=== PATIENT | female | born 1995 | race African-American/Black ===

== ENCOUNTER 2020-02-24 12:26 | Emergency (ER) | payer OTHER ==
[~2020-02-24] VITALS: Ht 172.7 cm; Wt 134.7 kg
--- NOTE | 2020-02-24 13:18 | Diagnostic Imaging Report ---
EXAMINATION: HAND 3 VIEW LT - HOPD INDICATION: Pain COMPARISON: None FINDINGS: No acute fracture or dislocation. Alignment is anatomic. Soft tissues appear unremarkable. No substantial degenerative change. IMPRESSION: No acute osseous injury. Signed by: Marilee Huntley MD on 02/24/2020 1:15 PM
--- NOTE | 2020-02-24 13:48 | NUR ---
ortho thumb splint pre alma placed per md order.
== END 2020-02-24 13:49 | disposition home or self-care (01) ==
LOC: FSED 12:26
DX: S60.222A Contusion of left hand, initial encounter (principal); S60.012A Contusion of left thumb without damage to nail, initial encounter; W23.1XXA Caught, crushed, jammed, or pinched between stationary objects, initial encounter; Y92.008 Other place in unspecified non-institutional (private) residence as the place of occurrence of the external cause; Z33.1 Pregnant state, incidental
CPT/HCPCS: 99283

== ENCOUNTER 2022-07-22 11:54 | Emergency (ER) | payer OTHER ==
[~2022-07-22] VITALS: Ht 175.3 cm; Wt 139.5 kg
[2022-07-22] MEDS ORDERED: ACETAMINOPHEN 325 MG TAB PO ONE (12:15)
[2022-07-22] MEDS ORDERED: IBUPROFEN 600 MG TAB PO ONE (12:25)
[2022-07-22] MEDS ORDERED: IBUPROFEN800 MG PO (12:47)
[2022-07-22] MEDS ORDERED: BROMFED DM COU118 ML PO (12:47)
== END 2022-07-22 13:04 | disposition home or self-care (01) ==
LOC: FSED 12:12
DX: R50.9 Fever, unspecified (principal); J06.9 Acute upper respiratory infection, unspecified; B34.9 Viral infection, unspecified; E66.9 Obesity, unspecified
CPT/HCPCS: 83518; 87400; 99283

== ENCOUNTER 2024-09-24 14:45 | Emergency (ER) | payer OTHER ==
[~2024-09-24] VITALS: Ht 172.7 cm; Wt 149.7 kg
[~2024-09-24 14:45] MED LIST: BROMFED DM COU118 ML PO; IBUPROFEN800 MG PO
[2024-09-24] MEDS ORDERED: PRENATAL + DHA1 EACH (15:16)
[2024-09-24 15:44] VITALS: PULSE 92; RESP 18; TEMP 99.3; O2SAT 99
== END 2024-09-24 15:46 | disposition home or self-care (01) ==
LOC: FSED 14:53
DX: R05.9 Cough, unspecified (principal); J06.9 Acute upper respiratory infection, unspecified; Z11.52 Encounter for screening for COVID-19; E66.01 Morbid (severe) obesity due to excess calories
CPT/HCPCS: 0223U; 83518; 87400; 99283

== ENCOUNTER 2025-04-23 19:02 | Emergency (ER) | payer OTHER ==
[~2025-04-23] VITALS: Ht 175.3 cm; Wt 147.0 kg
[~2025-04-23 19:02] MED LIST changes: +PRENATAL + DHA1 EACH
[2025-04-23 19:28] VITALS: PULSE 80; RESP 18; TEMP 97.4
[2025-04-23] MEDS: FLUORESCEIN SOD(OPTH) 1 MG STRP OP ONE (19:57)
[2025-04-23] MEDS: ERYTHROMYCIN (OPTH) 3.5 GM OINT OP ONE (19:57)
[2025-04-23] MEDS: TETRACAINE HCL 0.5% OPTH SOLN 4 ML BTL OP ONE (19:57)
[2025-04-23 20:03] VITALS: BP 141/74; PULSE 80; RESP 18; TEMP 97.4; O2SAT 100
== END 2025-04-23 20:03 | disposition home or self-care (01) ==
LOC: FSED 19:07
DX: S05.02XA Injury of conjunctiva and corneal abrasion without foreign body, left eye, initial encounter (principal); H53.8 Other visual disturbances; W26.8XXA Contact with other sharp object(s), not elsewhere classified, initial encounter; Y92.89 Other specified places as the place of occurrence of the external cause; E66.01 Morbid (severe) obesity due to excess calories
CPT/HCPCS: 99282